=== PATIENT | female | born 1970 | race African-American/Black ===

== ENCOUNTER 2017-09-09 01:20 | Emergency (ER) | payer SELFPAY | END 2017-09-09 04:29 | disposition home or self-care (01) | LOC: ERS 01:20 | DX: J11.1 Influenza due to unidentified influenza virus with other respiratory manifestations (principal); E78.5 Hyperlipidemia, unspecified; I10 Essential (primary) hypertension; F41.9 Anxiety disorder, unspecified; F32.9 Major depressive disorder, single episode, unspecified; Z87.891 Personal history of nicotine dependence | CPT/HCPCS: 99283 ==

== ENCOUNTER 2019-04-16 02:32 | Emergency (ER) | payer SELFPAY ==
[2019-04-16] MEDS ORDERED: diphenhydrAMINE 50 MG/ML VIAL ONE (02:41)
[2019-04-16] MEDS ORDERED: Acetaminophen 500 MG TAB ONE (02:41)
[2019-04-16] MEDS ORDERED: Metoclopramide HCl 10 MG/2 ML VIAL ONE (02:41)
[2019-04-16] MEDS ORDERED: Lorazepam 2 MG/ML VIAL ONE (03:16)
--- NOTE | 2019-04-16 09:42 | CT ---
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 PT light sensitive with n/v TECHNIQUE: Imaging protocol: Computed tomography images of the head without contrast. COMPARISON: No relevant prior studies available. FINDINGS: Brain: Scattered areas of hypoattenuation, likely chronic small vessel ischemic change, demyelination , or gliosis. No mass, hemorrhage, or acute infarction. Ventricles: Normal. Bones/joints: Normal. Sinuses: Normal as visualized. Mastoid air cells: Normal as visualized. Soft tissues: Unremarkable. IMPRESSION: No acute intracranial abnormality. Thank you for allowing us to participate in the care of your patient. Dictated and Authenticated by: Kashmir Villatoro MD 04/16/2019 3:38 AM Central Time ([place] & [place]) FINAL REPORT HEAD CT WITHOUT CONTRAST: Date: 04/16/19 COMPARISON: 09/10/13. HISTORY: Headache. FINDINGS: No parenchymal hemorrhage. No extra-axial hematoma. No midline shift. Brain volume is age-appropriate . Cortical meier-white matter differentiation is preserved. No hydrocephalus. Calvarium is intact. Hailee quate aeration of the sinuses and mastoid air cells. IMPRESSION: This report is in agreement with the preliminary report by Keith. No acute intracranial process. POS: PADMINI
== END 2019-04-16 04:15 | disposition home or self-care (01) ==
LOC: ERS 02:32
DX: R51 Headache (principal); E78.5 Hyperlipidemia, unspecified; I10 Essential (primary) hypertension; F41.9 Anxiety disorder, unspecified; F32.9 Major depressive disorder, single episode, unspecified; F17.210 Nicotine dependence, cigarettes, uncomplicated
CPT/HCPCS: 70450; 96361; 96365; 96375; J1200; J2060; J2765

== ENCOUNTER 2019-12-26 08:33 | Outpatient (CLI) | payer OTHER ==
--- NOTE | 2019-12-26 08:54 | RAD ---
Exam:Right foot 3 views HISTORY: Pain. COMPARISON: None FINDINGS: Lisfranc alignment is maintained. Preserved joint spaces. Obliquely oriented minimally disp laced fracture involving the proximal phalanx of the fourth digit. Associated soft tissue swelling. IMPRESSION: Proximal phalanx fracture, involving the fourth digit.
== END 2019-12-26 08:34 | disposition home or self-care (01) ==
LOC: RAD-FRANK 08:33
PROVIDERS: ATTEND Nurse Practitioner Family
DX: S99.921A Unspecified injury of right foot, initial encounter (principal); S92.511A Displaced fracture of proximal phalanx of right lesser toe(s), initial encounter for closed fracture

== ENCOUNTER 2020-07-18 14:25 | Emergency (ER) | payer SELFPAY | END 2020-07-18 17:28 | disposition left against medical advice (07) | LOC: ERS 14:25 | DX: Z53.21 Procedure and treatment not carried out due to patient leaving prior to being seen by health care provider (principal) ==